=== PATIENT | female | born 1930 | race Caucasian/White ===

== ENCOUNTER 2017-10-21 18:06 | Emergency (ER) | payer OTHER ==
[~2017-10-21] VITALS: Ht 165.1 cm; Wt 45.4 kg
--- NOTE | 2017-10-21 18:10 | NUR ---
PT [facility] FROM HOME. PRESENTS W/ RLE VARICOSE VEIN BLEEDING. PT STATES WAS TOUCHING IT AND SUDDENLY STARTED BLEEDING. TAKING BLOOD THINNERS. NO OTHER COMPLAIN AT THIS TIME. VSS. AWAITING MD BRIGHT.
[2017-10-21] MEDS ORDERED: ATEN25TA PO (18:18)
[2017-10-21] MEDS ORDERED: CLOP75TA15 PO (18:18)
[2017-10-21] MEDS ORDERED: GELATIN SPONGE,ABSORBABLE 1 SPONGE SPONGE TP ONE (18:24)
--- NOTE | 2017-10-21 18:25 | NUR ---
DR PATRICK AT BEDSIDE FOR EVAL.
--- NOTE | 2017-10-21 18:40 | NUR ---
MALAIKA MALONE AT BEDSIDE FOR WOUND CARE.
--- NOTE | 2017-10-21 19:19 | NUR ---
Patient discharged to home in stable condition. Written and verbal after care instructions given. Patient verbalizes understanding of instruction.
[2017-10-21 19:20] VITALS: BP 119/58
== END 2017-10-21 19:21 | disposition home or self-care (01) ==
LOC: ER 18:07
DX: I83.92 Asymptomatic varicose veins of left lower extremity (principal); I10 Essential (primary) hypertension; Z86.73 Personal history of transient ischemic attack (TIA), and cerebral infarction without residual deficits
CPT/HCPCS: 99283; A4606; A6403 ×2; Z7610